=== PATIENT | female | born 1985 | race Caucasian/White ===

== ENCOUNTER 2024-05-05 16:03 | Emergency (ER) | payer OTHER ==
[~2024-05-05] VITALS: Ht 152.4 cm; Wt 104.3 kg
[2024-05-05 16:06] VITALS: O2SAT 99
[2024-05-05 16:10] VITALS: TEMP 36.7
[2024-05-05] MEDS: PREDNISONE 20MG TABLET PO STA (17:31)
[2024-05-05] MEDS: ONDANSETRON 4MG ODT PO ONE (17:31)
[2024-05-05 17:36] VITALS: BP 139/89
[2024-05-05] MEDS: IBUPROFEN 400MG TABLET PO ONE (17:36)
[2024-05-05] MEDS: IPRATROPIUM BROMIDE (0.02%) 0.5MG/2.5ML NEB HHN STA (17:38)
[2024-05-05] MEDS: ALBUTEROL (0.083%) 2.5MG/3ML NEB HHN STA (17:38)
[2024-05-05 17:44] VITALS: PULSE 82; RESP 18; O2SAT 98
[2024-05-05] MEDS ORDERED: P20 MT (18:55)
[2024-05-05] MEDS ORDERED: ALBU90AE INH (18:55)
== END 2024-05-05 19:01 | disposition home or self-care (01) ==
LOC: ER 16:03
DX: J45.901 Unspecified asthma with (acute) exacerbation (principal); R00.0 Tachycardia, unspecified; Z90.710 Acquired absence of both cervix and uterus; Z90.49 Acquired absence of other specified parts of digestive tract
CPT/HCPCS: 71046; 94640; 93005; 94070; 98960; 99284; Q0162; J7512; Z7610 ×2